=== PATIENT | female | born 1935 | race Caucasian/White ===

== ENCOUNTER 2016-06-22 21:22 | Inpatient (IN) | payer MEDICARE ==
[~2016-06-22] VITALS: Ht 154.9 cm; Wt 58.4 kg
[2016-06-22 21:54] LABS: APPEARANCE HAZY (CLEAR); BACTERIA MANY /hpf (NONE SEEN); BILIRUBIN NEGATIVE (NEGATIVE); COLOR YELLOW (YELLOW); EPITHELIAL CELLS 0-5 /hpf (0-5); GLUCOSE NEGATIVE (NEGATIVE); KETONE NEGATIVE (NEGATIVE); LEUKOCYTE ESTERASE 2+ (NEGATIVE); NITRITE POSITIVE (NEGATIVE); PROTEIN TRACE mg/dL (NEGATIVE); UROBILINOGEN NORMAL (NORMAL); WHITE CELLS - URINE >50 /hpf (0-5)
[2016-06-22 21:55] LABS: UDS - AMPHET NEGATIVE QUAL (NEGATIVE); UDS - BARB NEGATIVE QUAL (NEGATIVE); UDS - BENZO NEGATIVE QUAL (NEGATIVE); UDS - COCAINE NEGATIVE QUAL (NEGATIVE); UDS - METH NEGATIVE QUAL (NEGATIVE); UDS - OPIATE NEGATIVE QUAL (NEGATIVE); UDS - PCP NEGATIVE QUAL (NEGATIVE); UDS - THC NEGATIVE QUAL (NEGATIVE)
[2016-06-22 21:58] LABS: BASOPHILS 0.6 % (0.0-2.0); EOSINOPHILS 2.5 % (0-7); HEMATOCRIT 41.2 % (36.0-48.0); HEMOGLOBIN 13.8 g/dL (12-16); IMMATURE GRANULOCYTES 0.2 % (0-5); LYMPHOCYTES 24.7 % (15-50); MCH 30.1 pg (26.0-34.0); MCHC 33.5 g/dL (31.0-37.0); MCV 89.8 fL (80.0-100.0); MEAN PLATELET VOLUME 10.3 fL (7.4-10.4); MONOCYTES 12.2 % (2-11); NEUTROPHILS 59.8 % (40-80); PLATELET COUNT 166 10x3/uL (130-400); RBC 4.59 10x6/uL (4.00-5.40); RDW 13.5 % (11.5-14.5); WBC 8.8 10x3/uL (4.8-10.8)
[2016-06-22 22:10] LABS: ALBUMIN 2.7 g/dL (3.4-5.0); ANION GAP 10.5 mmol/L (8-16); BILIRUBIN - TOTAL 0.34 mg/dL (0.2-1.3); CARBON DIOXIDE 31.8 mmol/L (21.0-32.0); CREATININE - SERUM 0.8 mg/dL (0.6-1.3); POTASSIUM - SERUM 3.3 mmol/L (3.5-5.1); PROTEIN - SERUM 6.9 g/dL (6.4-8.2)
--- NOTE | 2016-06-22 23:47 | NUR ---
PT RECEIVED FROM ER VIA STRETCHER ACCOMPANIED BY HOSPITAL STAFF. MOVED FROM STRETCHER TO BED AT THIS TIME. VITAL SIGNS TAKEN. PT AWAKE. ATTEMPTED TO ORIENT PT TO ROOM AND CALL LIGHT. CONFUSED TO PLACE, TIME, AND SITUATION, PT SPEECH DIFFICULT TO UNDERSTAND AT TIMES. HEART RRR WITH NO AUDIPLE MURMURS. LUNG SOUNDS CLEAR BILATERALLY. BOWEL SOUNDS ACTIVE X4 QUADRENTS. ABDOMEN SOFT NON-DISTENDED. PEDAL PULSES EQUAL BILATARALLY. PT SHOOK HEAD NO WHEN ASKED IF SHE NEEDED ANYTHING. BED LOW. PHONE AND CALL LIGHT IN REACH. SRX2.
[2016-06-23] MEDS ORDERED: LIPITOR80 MG PO (00:28)
[2016-06-23] MEDS ORDERED: GLUCOTROL 5 MG T5 MG PO (00:29)
[2016-06-23] MEDS ORDERED: TENORMIN25 MG PO (00:30)
[2016-06-23] MEDS ORDERED: ASPIRIN325 MG PO (00:30)
[2016-06-23] MEDS ORDERED: NOVOLOG100 U/M1 SC (00:33)
[2016-06-23 00:53] VITALS: BP 105/48; BMI 29.9
--- NOTE | 2016-06-23 01:16 | NUR ---
PT RESTING QUIETLY AT THIS TIME WITH EYES CLOSED. AROUSED EASILY. BP - 113/57. WILL CONTINUE TO MONITOR.
--- NOTE | 2016-06-23 01:58 | NUR ---
PT RESTING QUIETLY AT THIS TIME. TELEMETRY INITIATED. PT BP 122/69 LEFT ARM AT THIS TIME.
--- NOTE | 2016-06-23 02:54 | NUR ---
PT RESTING QUIETLY AT THIS TIME WITH EYES CLOSED. RESPIRATIONS EVEN, NON-LABORED. NO ACUTE DISTRESS NOTED AT THIS TIME. BED LOW. PHONE AND CALL LIGHT IN REACH. SRX2.
[2016-06-23 04:00] VITALS: BP 144/72
--- NOTE | 2016-06-23 05:07 | NUR ---
PT RESTING QUIETLY IN BED AT THIS TIME WITH EYES CLOSED. RESPIRATIONS EVEN, NON-LABORED. NO ACUTE DISTRESS NOTED AT THIS TIME. BED LOW. PHONE AND CALL LIGHT IN REACH. SRX2.
--- NOTE | 2016-06-23 05:57 | NUR ---
PT RESTING QUIETLY AT THIS TIME WITH EYES CLOSED AROUSED EASILY. DENIES NEEDS AT THIS TIME. BED LOW. PHONE AND CALL LIGHT IN REACH. SRX2.
--- NOTE | 2016-06-23 06:36 | NUR ---
PT RESTING QUIETLY AT THIS TIME. DENIES NEEDS. BED LOW. PHONE AND CALL LIGHT IN REACH. SRX2.
--- NOTE | 2016-06-23 07:57 | NUR ---
AWAKE AND AELRT. OIRENTED TO SELF. DIFFICULT TO ASSESS ORIENTATION PATIENT'S SPEECH IS VERY GARBLED. LUNGS ARE CLEAR BILATERALLY, NO COUGH NOTED. SKIN IS INTACT WITHOUT REDNESS EXCEPT SMALL SCABBED AREA TO SECOND TOE ON RIGHT FOOT. IV TO RIGHT FOREARM IS PATENT WITHOUT REDNESS AT INSERTION SITE. NO NEEDS NOTED.
[2016-06-23 08:20] VITALS: BP 132/68
[2016-06-23 10:42] VITALS: Ht 154.9 cm; Wt 58.4 kg
--- NOTE | 2016-06-23 12:30 | NUR ---
FEED MEAL PER STAFF. ATE OVER HALF OF TRAY. NO NEEDS NOTED.
[2016-06-23 12:55] VITALS: BP 142/72
--- NOTE | 2016-06-23 13:06 | NUR ---
REPOSITIONED IN BED FOR COMFORT.
[2016-06-23 16:37] VITALS: BP 147/67
--- NOTE | 2016-06-23 17:54 | NUR ---
PATIENT UNABLE TO ANSWER MRI SCREENING. PHONED [facility] AND RECEIVED SON IRMA NUMBER. HE STATES HE IS UNABLE TO GIVE A CLEAR HISTORY BECAUSE HIS MOTHER DID NOT SHARE ANY OF THAT INFORMATION WITH HIM. SPOKE TO JOSETTE NGUYEN SHE STATES A DEAF SON WILL BE HERE TOMORROW OR THE NEXT DAY. SCREENING FORM LEFT ON CHART TO BE COMPLETED AT THAT TIME.
--- NOTE | 2016-06-23 18:54 | NUR ---
REFUSED TO EAT BUT A FEW BITES OF SUPPER. FSBS 341. GIVEN 8 UNITS HUMALOG SUBQ PER SS. NO CHANGES NOTED. NO NEEDS EXPRESSED.
[2016-06-23 20:00] VITALS: BP 121/61
[2016-06-24] VITALS: BP 120/47
--- NOTE | 2016-06-24 00:47 | NUR ---
Recieved patient and report at 1900, patient alert and oriented to self only, confused with garbled word salad, patient removed her IV, bed in low locked position, water and call light in reach, siderails up X 2, CPOC.
[2016-06-24 04:00] VITALS: BP 136/63
[2016-06-24 06:59] LABS: BASOPHILS 0.7 % (0.0-2.0); EOSINOPHILS 3.9 % (0-7); HEMATOCRIT 38.4 % (36.0-48.0); HEMOGLOBIN 12.6 g/dL (12-16); IMMATURE GRANULOCYTES 0.3 % (0-5); LYMPHOCYTES 25.1 % (15-50); MCH 29.5 pg (26.0-34.0); MCHC 32.8 g/dL (31.0-37.0); MCV 89.9 fL (80.0-100.0); MEAN PLATELET VOLUME 10.3 fL (7.4-10.4); MONOCYTES 8.7 % (2-11); NEUTROPHILS 61.3 % (40-80); PLATELET COUNT 152 10x3/uL (130-400); RBC 4.27 10x6/uL (4.00-5.40); RDW 13.6 % (11.5-14.5)
[2016-06-24 07:10] LABS: CALCIUM 8.1 mg/dL (8.5-10.1); CARBON DIOXIDE 28.6 mmol/L (21.0-32.0); CHLORIDE - SERUM 103 mmol/L (98-107); CREATININE - SERUM 0.7 mg/dL (0.6-1.3); POTASSIUM - SERUM 3.2 mmol/L (3.5-5.1); SODIUM 139 mmol/L (136-145); eGFR NON AFRICAN AMERICAN 85 mL/min (90-120)
[2016-06-24 07:14] LABS: CALC OSMOLALITY 285 mosm/kg (275-300); GLUCOSE 254 mg/dL (74-106); UREA NITROGEN 9 mg/dL (7-18)
--- NOTE | 2016-06-24 09:00 | NUR ---
ATTEMPTS TO FEED PATEINT BREAKFAST WITHOUT SUCCESS. WILL TAKE DRINK OF JUICE BUT REFUSED TO EAT. TOOK MEDS MIXED IN JUICE.
--- NOTE | 2016-06-24 09:46 | NUR ---
IV RESITED TO L FOREARM. 22GAUGE. X1 ATTEMPT. DATED AND TAPED WELL. BED LOW, CALL LIGHT IN REACH, JOSETTE NGUYEN, AT BEDSIDE ASSISTING WITH BREAKFAST.
[2016-06-24 10:07] VITALS: BP 98/53
[2016-06-24 12:50] VITALS: BP 135/69
[2016-06-24 17:17] VITALS: BP 118/59
--- NOTE | 2016-06-24 18:18 | NUR ---
ATE ABOUT 10% OF SUPPER AND DUMPED THE REST IN HER LAP. NO CHANGES NOTED. DENIES NEEDS.
[2016-06-24 19:00] VITALS: BP 127/58
--- NOTE | 2016-06-24 22:20 | NUR ---
PT IN BED WITH HOB UP FOR COMFORT, WATCHING TV, TALKING GARBELED WITH NO ONE IN ROOM. BED IN LOWEST POSITION AND CALL LIGHT WITHIN REACH.
[2016-06-25] VITALS: BP 150/72
--- NOTE | 2016-06-25 01:41 | NUR ---
PT PULLIED IV OUT. PT COMBATIVE AT THIS TIME. WILL ATTEMPT TO PUT A NEW IV IN LATER.
--- NOTE | 2016-06-25 03:00 | NUR ---
PT IV SITED BY NURSE TO RIGHT FOREARM. ASSISTED WITH IV START DUE TO PT BEING COMBATIVE. FLUIDS HOOKED BACK UP PER ORDER. BED LOW. SIDE RAILS X 2. CALL LIGHT IN REACH.
[2016-06-25 04:00] VITALS: BP 138/71
--- NOTE | 2016-06-25 05:34 | NUR ---
PT UP TO BSC WITH [employer] PLANT OPERATOR.
[2016-06-25 06:09] LABS: BASOPHILS 0.6 % (0.0-2.0); EOSINOPHILS 2.6 % (0-7); HEMATOCRIT 39.1 % (36.0-48.0); HEMOGLOBIN 12.8 g/dL (12-16); IMMATURE GRANULOCYTES 0.2 % (0-5); LYMPHOCYTES 27.2 % (15-50); MCH 29.7 pg (26.0-34.0); MCHC 32.7 g/dL (31.0-37.0); MCV 90.7 fL (80.0-100.0); MEAN PLATELET VOLUME 10.8 fL (7.4-10.4); MONOCYTES 9.7 % (2-11); NEUTROPHILS 59.7 % (40-80); PLATELET COUNT 149 10x3/uL (130-400); RBC 4.31 10x6/uL (4.00-5.40); RDW 13.7 % (11.5-14.5); WBC 6.5 10x3/uL (4.8-10.8)
[2016-06-25 06:30] LABS: ANION GAP 10.7 mmol/L (8-16); CALCIUM 7.9 mg/dL (8.5-10.1); CARBON DIOXIDE 28.4 mmol/L (21.0-32.0); CREATININE - SERUM 0.8 mg/dL (0.6-1.3); POTASSIUM - SERUM 3.1 mmol/L (3.5-5.1)
--- NOTE | 2016-06-25 08:05 | NUR ---
PT CONFUSED AND UNABLE TO MAKE NEEDS KNOWN WILL MONITOR CLOSELY IV TO RIGHT FOREARM PATENT AND INTACT SRX2 CALL LIGHT WITHIN REACH WILL BED AT LOWEST SETTING
[2016-06-25 08:39] VITALS: BP 118/64
[2016-06-25 11:30] VITALS: BP 152/72
[2016-06-25 15:23] VITALS: BP 117/71
--- NOTE | 2016-06-25 17:16 | NUR ---
Patient Name: BURKE SERRA Admission Status: ER Accout number: [id number] Admission Date: 06-22-2016 : 1933 Admission Diagnosis:ALTERED MENTAL STATUS, UNSPECIFIED Attending: FARIDEH Current LOS: 3 Anticipated DC Date: 06-28-2016 Planned Disposition: Prison Facility Primary Insurance: [employer] CHOICE PPO [facility] Discharge Planning Comments: CM CALLED [facility] REGARDING PATIENTS NEEDS. PATIENT HAS A CAREGIVER FOR HER SON (IRMA) WHO IS DEAF. PATIENT ALSO HAS A DAUGHTER WHO IS DEAF AND BLIND. THE CAREGIVERS NAME IS SCOTTCHRISTELAdenike KNOTT [phone]. PATIENT IS IN SKILLED AT THIS TIME AT [facility]. PATIENT SEES DR. THOMAS OUTSIDE OF SKILLED REHAB. CM WILL CONTINUE TO FOLLOW PATIENT WITH D/C NEEDS AND PLANS. PCP DR. WILLIAM KNOTT (CAREGIVER) [phone] Capsule Maker: Eliza Rick Is the patient Alert and Oriented? No 0 * How many steps to enter\exit or inside your home? 0 0 * PCP DR. THOMAS OUTSIDE OF FACILITY DR. RANDY LORENZ IN FACILITY 0 * Pharmacy IN HOUSE 0 * Preadmission Environment Prison Facility 0 * Facility Name [facility] 0 * ADLs Total Dependent 0 * Equipment Wheelchair 0 * List name and contact numbers for known caregivers / representatives who currently or will assist patient after discharge: CHELSEAAdenike KNOTT (FAMILY CAREGIVER FOR SON) [phone] 0 * Community resources currently utilized Private Duty Care 0 * Please name any agencies selected above. GINGER KNOTT FAMILY CAREGIVER FOR PATIENTS SON - HELPS WITH DAUGHTER ALSO 0 * Additional services required to return to the preadmission environment? Yes 0 * Can the patient safely return to the preadmission environment? Yes 0 * Has this patient been hospitalized within the prior 30 days at any hospital? No 0 Grand Total: 0
--- NOTE | 2016-06-25 17:39 | NUR ---
UNABLE TO GET PATIENT SCREENED. STILL WAITING ON FAMILY MEMBER. WILL TRY AGAIN TOMORROW.
--- NOTE | 2016-06-25 22:11 | NUR ---
PATIENT RESTING IN BED. NO SIGNS OF DISTRESS NOTED. ALERT AND DISORIENTED. GARBLED WORDS. UNABLE TO ASWER QUESTIONS APPROPRIATELY. SCHEDULED MEDS GIVEN. SHIFT ASSESSMENT COMPLETED. BED LOW.
[2016-06-26] VITALS: BP 139/68
--- NOTE | 2016-06-26 02:00 | NUR ---
PT IN BED WITH NO DISTRESS. RESPIRATIONS EVEN AND UNLABORED. SIDE RAILS X 2. BED LOW. CALL LIGHT IN REACH.
[2016-06-26 04:00] VITALS: BP 151/70
[2016-06-26 06:59] LABS: BASOPHILS 0.5 % (0.0-2.0); EOSINOPHILS 3.3 % (0-7); HEMATOCRIT 39.4 % (36.0-48.0); HEMOGLOBIN 12.7 g/dL (12-16); IMMATURE GRANULOCYTES 0.4 % (0-5); LYMPHOCYTES 21.4 % (15-50); MCH 29.7 pg (26.0-34.0); MCHC 32.2 g/dL (31.0-37.0); MCV 92.3 fL (80.0-100.0); MEAN PLATELET VOLUME 10.7 fL (7.4-10.4); MONOCYTES 8.8 % (2-11); NEUTROPHILS 65.6 % (40-80); PLATELET COUNT 147 10x3/uL (130-400); RBC 4.27 10x6/uL (4.00-5.40); RDW 14.2 % (11.5-14.5)
--- NOTE | 2016-06-26 07:25 | NUR ---
PT CONFUSED AND ON BACK IN BED SRX2 RESP EVEN AND NONLABORED IV TO RIGHT FOREARM PATENT AND INTACT BED IN LOWEST SETTING CALL LIGHT WITHIN REACH WILL CONTINUE TO MONITOR
[2016-06-26 07:38] LABS: CALC OSMOLALITY 289 mosm/kg (275-300); CALCIUM 7.8 mg/dL (8.5-10.1); CHLORIDE - SERUM 107 mmol/L (98-107); CREATININE - SERUM 0.7 mg/dL (0.6-1.3); GLUCOSE 223 mg/dL (74-106); SODIUM 143 mmol/L (136-145); UREA NITROGEN 8 mg/dL (7-18); eGFR NON AFRICAN AMERICAN 85 mL/min (90-120)
[2016-06-26 07:40] LABS: POTASSIUM - SERUM 3.6 mmol/L (3.5-5.1)
[2016-06-26 09:09] VITALS: BP 134/73
[2016-06-26 14:04] VITALS: BP 123/81
--- NOTE | 2016-06-26 14:22 | CN ---
PATIENT NAME:BURKE SERRA MEDICAL RECORD: [id number] : 31 LOCATION:[facility] [place] ADMIT DATE: 06/22/16 ACCOUNT: [id number] CONSULTING PHYSICIAN: ALBA SALDANA III, MD REFERRING PHYSICIAN: DELFINA PATEL MD DATE OF CONSULTATION: 06/25/2016 Psychiatry Consultation FINDINGS: This is an 80-year-old white female who was accepted on transfer from [facility] to the medical floor. At time of admission, there was a history of several days of combativeness, decreased appetite, and severe confusion. At the time of initial assessment, the patient could not give a coherent history and had extremely disordered speech. She had been receiving a pureed diet at the group home, so evidently there have been some swallowing difficulties as well. Initial assessment indicates a possible left middle cerebral artery stroke. MRI is pending at this point. The patient also has an active urinary tract infection. Consultation was requested to evaluate from a [facility] psychiatric standpoint and consider possibility of transfer at a later time. On exam, the patient is pleasant, she awakens and orients toward the examiner, but is clearly quite confused. Mood, for the most part is euthymic. Affect however is shallow, silly, and childlike. Speech is completely unintelligible. There is frequent word substitution and neologisms. Content of thought is negative for clear cut delusional ideation, but she shows very severe sensorium deficits. She is oriented only to person and has impairment in all phases of memory. She has no insight at this point. DIAGNOSTIC IMPRESSION: AXIS I: Subacute delirium -- rule out vascular dementia. RECOMMENDATIONS: At this point, the patient remains medically ill and workup is continuing. If she does not clear considerably over the next several days, then she may be considered a candidate for transfer to the geriatric psychiatry unit. TRANSINT:[id number] Voice Confirmation ID: [id number] DOCUMENT ID: [id number] ALBA SALDANA III, MD at 1422 CC: [id number] DICTATION DATE: 06/25/167 MORTAR MAN: 06/25/168 ADM IN [place] [id number] [place] [address]
--- NOTE | 2016-06-26 14:57 | NUR ---
NUTRITION MONITORING & EVAL CHART REVIEWED. PT VISIT. FAMILY AT BEDSIDE. SPEECH THERAPIST AT BEDSIDE. PROVIDED CHILLED ENSURE FOR SPEECH THERAPY TRIAL. WILL ORDER WITH MEALS, IF OK WITH SPEECH. RD FOLLOWING
--- NOTE | 2016-06-26 21:45 | NUR ---
PATIENT RESTING IN BED. VERY CONFUSED. SPEECH IS GARBLED. UNABLE TO UNDERSTAND. DOES NOT RESPOND APPROPRIATELY. VERY COMBATIVE AT THIS TIME. REFUSING ALL MEDICATIONS. COMBATIVE DURING LINEN CHANGE. SHIFT ASSESSMENT COMPLETED. BED LOW CALL LIGHT IN REACH. BED ALARM ON.
[2016-06-26 23:41] VITALS: BP 143/55
--- NOTE | 2016-06-27 02:00 | NUR ---
PT IN BED WITH NO DISTRESS. SIDE RAILS X 2. BED LOW. CALL LIGHT IN REACH.
[2016-06-27 04:01] VITALS: BP 115/63
[2016-06-27 06:32] LABS: BASOPHILS 0.4 % (0.0-2.0); EOSINOPHILS 3.2 % (0-7); HEMATOCRIT 36.9 % (36.0-48.0); IMMATURE GRANULOCYTES 0.3 % (0-5); LYMPHOCYTES 29.1 % (15-50); MCHC 32.5 g/dL (31.0-37.0); MCV 92.3 fL (80.0-100.0); MEAN PLATELET VOLUME 10.7 fL (7.4-10.4); MONOCYTES 8.6 % (2-11); NEUTROPHILS 58.4 % (40-80); PLATELET COUNT 157 10x3/uL (130-400); WBC 7.4 10x3/uL (4.8-10.8)
[2016-06-27 07:07] LABS: CALC OSMOLALITY 288 mosm/kg (275-300); CALCIUM 8.1 mg/dL (8.5-10.1); CARBON DIOXIDE 26.9 mmol/L (21.0-32.0); CHLORIDE - SERUM 106 mmol/L (98-107); CREATININE - SERUM 0.6 mg/dL (0.6-1.3); GLUCOSE 248 mg/dL (74-106); POTASSIUM - SERUM 3.4 mmol/L (3.5-5.1); SODIUM 142 mmol/L (136-145); UREA NITROGEN 7 mg/dL (7-18); eGFR NON AFRICAN AMERICAN > 90 mL/min (90-120)
[2016-06-27 08:23] VITALS: BP 119/66
--- NOTE | 2016-06-27 09:34 | NUR ---
AWAKE AND ALERT. ORIENTED TO SELF. ATTEMPTS TO REORIENT WIHTOUT SUCCESS. LUNGS ARE CLEAR BILATERALLY, NO COUGH NOTED. SKIN IS INTACT WITHOUT REDNESS. IV TO RIGHT FOREARM/WRIST AREA PATENT WITHOUT REDNESS AT INSERTION SITE. GIVEN AM MEDS CRUSHED IN PUDDING AND PATIENT SPIT THEM OUT. NO NEEDS NOTED. ATE OVER HALF OF BREAKFAST WITH STAFF FEEDING HER.
--- NOTE | 2016-06-27 10:30 | NUR ---
RESTING QUIETLY IN BED. NO NEEDS NOTED.
--- NOTE | 2016-06-27 12:15 | NUR ---
ASSISTED TO EAT LUNCH PER STAFF. REFUSED EVEN ONE BITE. FOUND WITH IV OUT LAYING ON FLOOR. WILL RESITE.
[2016-06-27 13:05] VITALS: BP 141/67
--- NOTE | 2016-06-27 15:23 | NUR ---
IV SITED TO LEFT FOREARM AFTER ONE ATTEMPT WITH 22G. TOLERATED WELL.
[2016-06-27 16:12] VITALS: BP 131/61
--- NOTE | 2016-06-27 17:47 | NUR ---
OT NOTE: PT COMPLETED BUE AAROM EXS FOR INCREASED ENDURANCE AND AX TOLERANCE. PT COMPLETED GROOMING TASK WITH MOD A SECONDARY TO CONFUSION. THANK YOU, RHEA BAILEY/Jacquelyn
[2016-06-27 19:00] VITALS: BP 105/54
--- NOTE | 2016-06-27 19:00 | NUR ---
PATIENT SLEEPING ON LEFT SIDE. HOB 20 DEGREES. RR EVEN AND UNLABORED. 0 S/S OF DISTRESS. IV TO LEFT FA PATENT WITH NO REDNESS OR SWELLING. TELEMETRY ON. B/A ON. BED LOW. DOOR OPEN.
--- NOTE | 2016-06-27 19:58 | NUR ---
REFUSED SUPPER TRAY. NO CHANGES NOTED. NO NEEDS NOTED.
--- NOTE | 2016-06-27 23:30 | NUR ---
LINENS AND GOWN CHANGED DUE TO INCONTINENT EPISODE OF BLADDER. CRUSHED MEDS AND ATTEMPTED TO GIVE THEM TO PATIENT IN PUDDING BUT SHE IS BEING VERY COMBATIVE. SPITTING THE PUDDING OUT AND SCREAMING.
--- NOTE | 2016-06-28 03:33 | NUR ---
LINENS AND GOWN CHANGED AGAIN. DISTRIBUTION MANAGER UNABLE TO GET VITALS BECAUSE PATIENT IS BEING TOO COMPLATIVE.
[2016-06-28 05:39] LABS: BASOPHILS 0.5 % (0.0-2.0); EOSINOPHILS 5.5 % (0-7); HEMATOCRIT 36.8 % (36.0-48.0); HEMOGLOBIN 11.7 g/dL (12-16); IMMATURE GRANULOCYTES 0.2 % (0-5); LYMPHOCYTES 28.9 % (15-50); MCH 29.4 pg (26.0-34.0); MCHC 31.8 g/dL (31.0-37.0); MCV 92.5 fL (80.0-100.0); MEAN PLATELET VOLUME 10.5 fL (7.4-10.4); MONOCYTES 10.6 % (2-11); NEUTROPHILS 54.3 % (40-80); PLATELET COUNT 147 10x3/uL (130-400); RBC 3.98 10x6/uL (4.00-5.40); RDW 14.1 % (11.5-14.5); WBC 5.8 10x3/uL (4.8-10.8)
[2016-06-28 05:57] LABS: CALC OSMOLALITY 284 mosm/kg (275-300); CALCIUM 8.2 mg/dL (8.5-10.1); CARBON DIOXIDE 27.1 mmol/L (21.0-32.0); CHLORIDE - SERUM 107 mmol/L (98-107); CREATININE - SERUM 0.6 mg/dL (0.6-1.3); POTASSIUM - SERUM 3.5 mmol/L (3.5-5.1); SODIUM 142 mmol/L (136-145); UREA NITROGEN 7 mg/dL (7-18); eGFR NON AFRICAN AMERICAN > 90 mL/min (90-120)
[2016-06-28 06:06] LABS: GLUCOSE 176 mg/dL (74-106)
--- NOTE | 2016-06-28 08:20 | NUR ---
AWAKE AND ALERT. INCONTINENT OF URINE, SKIN CARE PER STAFF. LINENS CHANGED. ATTEMPTED TO FEED SELF THIS AM. ATE A FEW BITES AND DRANK ALL OF ENSURE. LUNGS ARE CLEAR BILATERALLY, NO COUGH NOTED. SKIN IS INTACT WITHOUT REDNESS. IV TO LEFT FOREARM IS PATENT WITHOUT REDNESS AT INSERTION SITE. NO NEEDS. NOTED.
[2016-06-28 09:29] VITALS: BP 139/75
--- NOTE | 2016-06-28 09:30 | NUR ---
TOOK MOST OF AM MEDS CRUSCHED IN ORANGE JUICE THIS AM. REFUSED TO TAKE SECOND SWALLOW OF MEDS. INCONTINENT OF URINE. SKIN CARE PER STAFF.
--- NOTE | 2016-06-28 11:08 | NUR ---
RUDI RECIEVED CALL FROM MS. KNOTT (CAREGIVER-FRIEND OF FAMILY-HAD PASSWORD) REGARDING POA. FAMILY TRIED TO GET POA PAPERS SIGNED A FEW DAYS AGO AND SHE WAS TOO CONFUSED. MS. KNOTT ASKED IF THE DOCTORS COULD WRITE SOMETHING FOR THEM TO GET POA. RUDI STATED TO MS. KNOTT THAT THE FAMILY NEEDS TO GET A AMMUNITION AND EXPLOSIVES HANDLER AND SHE STATED THEY HAD ONE (CARMELLA ELISE). RUDI STATED THEY SHOULD BE SEEING THE AMMUNITION AND EXPLOSIVES HANDLER TO FIND OUT THE PROCESS THAT NEEDS TO BE DONE REGARDING POA. MS. KNOTT THANKED RUDI AND STATED SHE WOULD CONTACT THE AMMUNITION AND EXPLOSIVES HANDLER.
[2016-06-28] MEDS ORDERED: MUCINEX600 MG PO (11:54)
[2016-06-28] MEDS ORDERED: TESSALON PERLE100 MG PO (11:54)
[2016-06-28] MEDS ORDERED: OMNICEF300 MG PO (11:55)
[2016-06-28] MEDS ORDERED: HUMALOG 30100 UNITS/ SC (11:55)
[2016-06-28 12:58] VITALS: BP 131/68
--- NOTE | 2016-06-28 13:40 | NUR ---
OT NOTE: PT MORE COOPERATIVE TODAY; CONTINUES WITH BROCHAS APHASIA, GLOBALLY EFFECTING HER SPEECH. PT ABLE TO PERFORM BED MOB WITH MIN ASSIST; SIT TO STAND WITH MIN ASSIST; POOR STANDING BALANCE WITH A FEW STEPS AND RADIO MECHANIC; REQUIRED MOD ASSIST TO SAMSON SOCKS; TOTAL HAND PLACEMENT TODAY TO HOLD HER SPOON, SHE CONTINUALLY ATTEMPTED TO USE IT A STRAW. PT APPEARS TO HAVE A STRONG AVERSION TO EVERY TEXTURE OF FOOD ATTEMPTED TODAY. PERFORMED WELL AND HAD NO DIFFICULTIES WITH DRINKING WATER AND HOLDING HER CUP; MOD ASSIST TO CLEAN HANDS AND FACE WITH CLOTH, SHE IS ALSO VERY PHYSICALLY APRAXIX
--- NOTE | 2016-06-28 15:09 | NUR ---
CM REASSESSMENT NOTE: PATIENT DISCHARGING TO [facility] TODAY
[2016-06-28 16:21] VITALS: BP 152/66
--- NOTE | 2016-06-28 17:22 | NUR ---
OT NOTE: PT COMPLETED HYGIENE TASK WITH CHARLIE Tran. PT COMPLETED BUE AAROM FOR INCREASED STRENGTH. THANK YOU, RHEA BAILEY/Jacquelyn
--- NOTE | 2016-06-28 18:05 | NUR ---
IV TO LEFT FOREARM D/C WITH CATHETER INTACT. REPORT CALLED TO RODRIGO FINCH IN HALF-WAY. ALL QUESTIONS ANSWERED. TRANSFERRED VIA WC. FAMILY AWARE OF PENDING TRANSFER.
== END 2016-06-28 18:06 | disposition short-term general hospital (02) | DRG 689 ==
LOC: D.ER 21:22 → D.MS 22:24 → EDBD 22:24 → D.MS 06-28 18:06
PROVIDERS: Emergency Medicine; ADMIT Emergency Medicine
DX: N39.0 Urinary tract infection, site not specified (principal); G93.49 Other encephalopathy; B96.1 Klebsiella pneumoniae [K. pneumoniae] as the cause of diseases classified elsewhere; E87.6 Hypokalemia; I10 Essential (primary) hypertension; R40.2143 Coma scale, eyes open, spontaneous, at hospital admission; R40.2363 Coma scale, best motor response, obeys commands, at hospital admission; R40.2243 Coma scale, best verbal response, confused conversation, at hospital admission; R41.0 Disorientation, unspecified; E11.9 Type 2 diabetes mellitus without complications; Z79.4 Long term (current) use of insulin; Z86.73 Personal history of transient ischemic attack (TIA), and cerebral infarction without residual deficits

== ENCOUNTER 2016-06-28 18:15 | Inpatient (IN) | payer MEDICARE ==
[~2016-06-28 18:15] MED LIST: ASPIRIN325 MG PO; GLUCOTROL 5 MG T5 MG PO; HUMALOG 30100 UNITS/ SC; LIPITOR80 MG PO; MUCINEX600 MG PO; NOVOLOG100 U/M1 SC; OMNICEF300 MG PO; TENORMIN25 MG PO; TESSALON PERLE100 MG PO
[2016-06-28 19:45] LABS: CHOL - HDL RATIO 2.9 ratio (2.3-4.1); LDL-HDL RATIO 1.2 ratio (1.5-3.5)
[2016-06-28 19:48] LABS: HEMOGLOBIN A1C 8.9 % (4.8-6.0)
[2016-07-05] MEDS ORDERED: VITAMIN D5000 UNIT PO (10:42)
== END 2016-07-06 12:50 | DRG 56 ==
LOC: D.PSYCH 18:15
PROVIDERS: ADMIT Psychiatry & Neurology Psychiatry
DX: G30.9 Alzheimer's disease, unspecified (principal); R53.2 Functional quadriplegia; F02.81 Dementia in other diseases classified elsewhere, unspecified severity, with behavioral disturbance; F01.51 Vascular dementia, unspecified severity, with behavioral disturbance; I69.319 Unspecified symptoms and signs involving cognitive functions following cerebral infarction; I10 Essential (primary) hypertension; E11.9 Type 2 diabetes mellitus without complications; E78.5 Hyperlipidemia, unspecified; R13.10 Dysphagia, unspecified; E55.9 Vitamin D deficiency, unspecified; Z91.81 History of falling